=== PATIENT | male | born 1995 | race Hispanic/Latino ===

== ENCOUNTER 2024-01-31 19:35 | Inpatient (IN) | payer SELFPAY ==
[2024-01-31 20:17] LABS: #Basophils Less than 0.03 10x3/uL (0.0-0.2); %Basophils 0.2 % (0.0-1.0); %Eosinophils 1.9 % (0.0-10.0); %Neutrophils 73.7 % (42.0-75.0); Hematocrit 35.1 % (42.0-52.0); Hemoglobin 11.7 g/dL (14.0-18.0); Mean Corpuscular HGB CONC 33.3 g/dL (32.0-36.0); Mean Corpuscular Hemoglobin 28.5 pg (27.0-31.0); Mean Corpuscular Volume 85.4 fL (78.0-98.0); Mean Platelet Volume 8.8 fL (7.4-10.4); Platelet Count 356 10x3/uL (130-400); RBC Distribution Width 13.6 % (11.5-14.5); Red Blood Cell (RBC) Count 4.11 mill/uL (4.70-6.10)
[2024-01-31 20:33] LABS: ALT (SGPT) 16 U/L (8-55); AST (SGOT) 12 U/L (5-34); Albumin 3.3 g/dL (3.5-5.0); Alkaline Phosphatase 89 U/L (40-110); Anion Gap 14 mmol/L (10-20); BUN (Urea Nitrogen) 9 mg/dL (8.9-20.6); Bilirubin, Total 0.4 mg/dL (0.2-1.2); Calc. Creatinine Clearance 0 mL/min (70-130); Calcium 9.2 mg/dL (7.8-10.44); Carbon Dioxide 25 mmol/L (22-29); Chloride 99 mmol/L (98-107); Estimated GFR 111; Globulin 3.3 g/dL (2.4-3.5); Glucose 385 mg/dL (70-105); Potassium 4.1 mmol/L (3.5-5.1); Protein, Total 6.6 g/dL (6.0-8.3); Sodium 134 mmol/L (136-145)
[2024-01-31 20:38] LABS: Troponin I Less than 0.010 ng/mL (< 0.028)
[2024-01-31] MEDS ORDERED: Azithromycin 500 MG VIAL ONE ×2 (21:23→21:26)
[2024-01-31] MEDS ORDERED: Sodium Chloride 0.9% 100 ML ONE (21:26)
[2024-01-31] MEDS ORDERED: cefTRIAXone (ROCEPHIN) 2 GM VIAL ONE (21:26)
[2024-01-31] MEDS ORDERED: Ondansetron PF 4 MG/2 ML Vial IVP PRN (21:52)
[2024-01-31] MEDS ORDERED: Senokot S 8.6-50 MG TAB PO PRN (21:52)
[2024-01-31 22:35] LABS: Bacteria/HPF None Seen HPF (None Seen); Bilirubin Negative (Negative); Blood, Urine Negative (Negative); CAUTI Indications for Culture Fever or rigors; Clarity Clear (Clear); Glucose, Urine (Dipstick) Greater than 1000 mg/dL (Negative); Ketone, Urine Negative (Negative); Leukocyte Negative Leu/uL (Negative); Nitrite Negative (Negative); Protein, Urine (Dipstick) Negative (Neg-Trace); RBC/HPF 0-3 HPF (0-3); Specific Gravity, Urine 1.024 (1.002-1.036); Squamous Epithelial None Seen HPF (0-3); Urobilinogen Normal mg/dL (Less than 2); WBC/HPF None Seen HPF (0-3)
[2024-01-31 22:36] LABS: SARS-CoV-2 E Target Negative; SARS-CoV-2 N2 Target Negative; SARS-CoV-2 NAA Rapid Test Not Detected (NotDetected); SARS-CoV-2 RdRP gene Negative
[2024-01-31 22:36] LABS: Urine Culture Reflex No No
[2024-01-31 22:53] LABS: Lactic Acid 2.87 mmol/L (0.5-2.2)
[2024-01-31] MEDS ORDERED: Glucagon 1 MG/ML KIT IM PRN (23:49)
[2024-01-31] MEDS ORDERED: Dextrose 50% Abboject 50 ML SYRINGE SLOW IVP PRN (23:49)
[2024-01-31] MEDS ORDERED: Dextrose 5% in Water 1,000 ML IV PRN (23:49)
[2024-02-01 00:12] VITALS: BMI 33.8
[2024-02-01] MEDS: Sodium Chloride 0.9% 1,000 ML IV SCH (00:17)
[2024-02-01 00:37] LABS: Legionella Urinary Ag Negative (Negative); Strep pneumo Urine Ag NEGATIVE (NEGATIVE)
[2024-02-01 02:04] LABS: Influenza A by NAA Not Detected (NotDetected); Influenza B by NAA Not Detected (NotDetected); SARS-CoV-2 NAA Rapid Test Not Detected (NotDetected)
[2024-02-01 06:01] LABS: #Basophils 0.03 10x3/uL (0.0-0.2); %Basophils 0.3 % (0.0-1.0); %Eosinophils 1.7 % (0.0-10.0); %Lymphocytes 13.8 % (21.0-51.0); %Monocytes 11.7 % (0.0-10.0); %Neutrophils 72.1 % (42.0-75.0); Hematocrit 33.4 % (42.0-52.0); Hemoglobin 10.7 g/dL (14.0-18.0); Mean Corpuscular Hemoglobin 28.1 pg (27.0-31.0); Mean Corpuscular Volume 87.7 fL (78.0-98.0); Platelet Count 318 10x3/uL (130-400); RBC Distribution Width 13.7 % (11.5-14.5); Red Blood Cell (RBC) Count 3.81 mill/uL (4.70-6.10)
[2024-02-01 06:26] LABS: ALT (SGPT) 16 U/L (8-55); AST (SGOT) 12 U/L (5-34); Alkaline Phosphatase 78 U/L (40-110); Anion Gap 11 mmol/L (10-20); BUN (Urea Nitrogen) 7 mg/dL (8.9-20.6); Bilirubin, Total 0.6 mg/dL (0.2-1.2); Calc. Creatinine Clearance 186 mL/min (70-130); Calcium 8.8 mg/dL (7.8-10.44); Carbon Dioxide 26 mmol/L (22-29); Chloride 104 mmol/L (98-107); Estimated GFR 123; Globulin 3.3 g/dL (2.4-3.5); Glucose 282 mg/dL (70-105); Potassium 4.1 mmol/L (3.5-5.1); Protein, Total 6.3 g/dL (6.0-8.3); Sodium 137 mmol/L (136-145)
[2024-02-01] MEDS: Insulin Lispro 100 UNIT/ML 10 ML VIAL SC PRN ×2 (07:02→20:24)
[2024-02-01] MEDS: Enoxaparin 40 MG (0.4 mL) SYRINGE SC SCH (09:05)
[2024-02-01] MEDS: cefTRIAXone\\ROCEPHIN 1 GM in Sodium Chloride 0.9% 100 ML IVPB SCH (09:05)
[2024-02-01] MEDS ORDERED: Iopamidol 370 76% 100 ML VIAL ONE (09:05)
[2024-02-01] MEDS: guaiFENesin ER 600 MG TAB PO SCH (09:06)
[2024-02-01] MEDS: Azithromycin 500 MG in Sodium Chloride 0.9% 250 ML 250 ML IVPB SCH (20:22)
[2024-02-02 06:26] LABS: #Basophils Less than 0.03 10x3/uL (0.0-0.2); %Basophils 0.2 % (0.0-1.0); %Lymphocytes 11.9 % (21.0-51.0); %Monocytes 10.2 % (0.0-10.0); %Neutrophils 76.3 % (42.0-75.0); Hematocrit 33.8 % (42.0-52.0); Hemoglobin 11.1 g/dL (14.0-18.0); Mean Corpuscular HGB CONC 32.8 g/dL (32.0-36.0); Mean Corpuscular Hemoglobin 28.5 pg (27.0-31.0); Mean Corpuscular Volume 86.9 fL (78.0-98.0); Platelet Count 335 10x3/uL (130-400); RBC Distribution Width 13.6 % (11.5-14.5); Red Blood Cell (RBC) Count 3.89 mill/uL (4.70-6.10)
[2024-02-02 06:34] LABS: Lactic Acid 1.21 mmol/L (0.5-2.2)
[2024-02-02 06:38] LABS: Anion Gap 12 mmol/L (10-20); BUN (Urea Nitrogen) 8 mg/dL (8.9-20.6); Calc. Creatinine Clearance 181 mL/min (70-130); Calcium 8.9 mg/dL (7.8-10.44); Carbon Dioxide 25 mmol/L (22-29); Chloride 101 mmol/L (98-107); Estimated GFR 122; Glucose 241 mg/dL (70-105); Potassium 3.6 mmol/L (3.5-5.1); Sodium 134 mmol/L (136-145)
[2024-02-02] MEDS: Cefepime 2 GM in Sodium Chloride 0.9% 100 ML IVPB SCH (09:44)
[2024-02-02] MEDS: Piperacillin/Tazobactam 3.375 GM in Sodium Chloride 0.9% 100 ML IVPB SCH ×2 (13:41→18:01)
[2024-02-02 15:41] LABS: HIV (1/2) Antibody/Antigen NONREACTIVE (NonReactive); HIV 1/2 INDEX 0.22 S/CO (<1.00)
[2024-02-03] MEDS: Acetaminophen 325 MG TAB PO PRN (02:59)
[2024-02-03] MEDS: Benzonatate 100 MG CAP PO PRN (03:34)
[2024-02-03 06:13] LABS: #Basophils Less than 0.03 10x3/uL (0.0-0.2); %Basophils 0.1 % (0.0-1.0); %Eosinophils 0.9 % (0.0-10.0); %Monocytes 10.5 % (0.0-10.0); %Neutrophils 76.8 % (42.0-75.0); Hematocrit 34.7 % (42.0-52.0); Hemoglobin 11.3 g/dL (14.0-18.0); Mean Corpuscular HGB CONC 32.6 g/dL (32.0-36.0); Mean Corpuscular Hemoglobin 28.6 pg (27.0-31.0); Mean Corpuscular Volume 87.8 fL (78.0-98.0); Platelet Count 352 10x3/uL (130-400); RBC Distribution Width 13.6 % (11.5-14.5); Red Blood Cell (RBC) Count 3.95 mill/uL (4.70-6.10)
[2024-02-03 06:32] LABS: Anion Gap 13 mmol/L (10-20); BUN (Urea Nitrogen) 13 mg/dL (8.9-20.6); Calc. Creatinine Clearance 140 mL/min (70-130); Calcium 9.2 mg/dL (7.8-10.44); Carbon Dioxide 24 mmol/L (22-29); Chloride 101 mmol/L (98-107); Estimated GFR 99; Glucose 276 mg/dL (70-105); Potassium 3.7 mmol/L (3.5-5.1); Sodium 134 mmol/L (136-145)
[2024-02-03] MEDS: GUAIFENESIN SF SOLN 200 MG/10 ML UDCUP PO PRN (17:44)
[2024-02-03] MEDS: Pyrazinamide 500 MG TAB PO SCH (19:15)
[2024-02-03] MEDS: Isoniazid 100 MG TAB PO SCH (19:16)
[2024-02-03] MEDS: Ethambutol HCl 400 MG TAB PO SCH (19:16)
[2024-02-03] MEDS: Rifampin 300 MG CAP PO SCH (19:16)
[2024-02-03] MEDS ORDERED: Insulin Glargine 30 UNITS/0.3 ML VIAL SC SCH (21:00)
[2024-02-03] MEDS: Insulin Glargine 30 UNITS/0.3 ML VIAL SC SCH (21:43)
[2024-02-03] MEDS: pyridOXINE 50 MG (B6) TAB PO SCH (21:44)
[2024-02-04] MEDS: Rifampin 300 MG CAP PO SCH (09:14)
[2024-02-04] MEDS: pyridOXINE 50 MG (B6) TAB PO SCH (09:14)
[2024-02-04] MEDS: Pyrazinamide 500 MG TAB PO SCH (09:15)
[2024-02-04] MEDS: Isoniazid 100 MG TAB PO SCH (09:15)
[2024-02-04 10:50] LABS: #Basophils Less than 0.03 10x3/uL (0.0-0.2); %Basophils 0.2 % (0.0-1.0); %Eosinophils 0.6 % (0.0-10.0); %Lymphocytes 12.8 % (21.0-51.0); %Monocytes 9.8 % (0.0-10.0); %Neutrophils 76.1 % (42.0-75.0); Hematocrit 36.6 % (42.0-52.0); Hemoglobin 12.1 g/dL (14.0-18.0); Mean Corpuscular HGB CONC 33.1 g/dL (32.0-36.0); Mean Corpuscular Hemoglobin 28.2 pg (27.0-31.0); Mean Corpuscular Volume 85.3 fL (78.0-98.0); Platelet Count 410 10x3/uL (130-400); RBC Distribution Width 13.5 % (11.5-14.5); Red Blood Cell (RBC) Count 4.29 mill/uL (4.70-6.10)
[2024-02-04 11:06] LABS: Anion Gap 16 mmol/L (10-20); BUN (Urea Nitrogen) 14 mg/dL (8.9-20.6); Calc. Creatinine Clearance 173 mL/min (70-130); Calcium 9.9 mg/dL (7.8-10.44); Carbon Dioxide 22 mmol/L (22-29); Chloride 99 mmol/L (98-107); Estimated GFR 121; Glucose 248 mg/dL (70-105); Sodium 133 mmol/L (136-145)
[2024-02-04] MEDS: Insulin Glargine 30 UNITS/0.3 ML VIAL SC SCH (20:34)
[2024-02-05 04:43] LABS: Hemoglobin A1c 10.4 % (4.0-6.0)
[2024-02-05 13:18] LABS: Fungitell Beta (1,3) D-Glucan Negative (.)
[2024-02-06 00:13] LABS: QuantiFERON-TB Gold Plus POSITIVE (Negative)
[2024-02-06] MEDS: Calcium Carbonate 500 MG ChewTAB PO PRN (08:19)
[2024-02-06 17:10] VITALS: BMI 33.8
[2024-02-06 21:13] LABS: Histoplasma Mycelial AB (CF) Negative (Neg:<1:2); Histoplasma Yeast AB (CF) Negative (Neg:<1:2)
[2024-02-08 05:59] LABS: #Basophils 0.03 10x3/uL (0.0-0.2); %Basophils 0.3 % (0.0-1.0); %Eosinophils 2.6 % (0.0-10.0); %Lymphocytes 13.8 % (21.0-51.0); %Monocytes 8.3 % (0.0-10.0); %Neutrophils 74.5 % (42.0-75.0); Hematocrit 35.4 % (42.0-52.0); Hemoglobin 11.7 g/dL (14.0-18.0); Mean Corpuscular HGB CONC 33.1 g/dL (32.0-36.0); Mean Corpuscular Hemoglobin 28.3 pg (27.0-31.0); Mean Corpuscular Volume 85.7 fL (78.0-98.0); Mean Platelet Volume 8.8 fL (7.4-10.4); Platelet Count 395 10x3/uL (130-400); RBC Distribution Width 13.3 % (11.5-14.5); Red Blood Cell (RBC) Count 4.13 mill/uL (4.70-6.10)
[2024-02-08 06:15] LABS: ALT (SGPT) 13 U/L (8-55); AST (SGOT) 14 U/L (5-34); Albumin 3.2 g/dL (3.5-5.0); Alkaline Phosphatase 79 U/L (40-110); Anion Gap 12 mmol/L (10-20); BUN (Urea Nitrogen) 9 mg/dL (8.9-20.6); Bilirubin, Total 0.4 mg/dL (0.2-1.2); Calc. Creatinine Clearance 193 mL/min (70-130); Calcium 9.3 mg/dL (7.8-10.44); Carbon Dioxide 24 mmol/L (22-29); Chloride 102 mmol/L (98-107); Estimated GFR 125; Glucose 169 mg/dL (70-105); Potassium 3.8 mmol/L (3.5-5.1); Protein, Total 7.2 g/dL (6.0-8.3); Sodium 134 mmol/L (136-145)
[2024-02-09] MEDS: guaiFENesin ER 600 MG TAB PO SCH (09:32)
[2024-02-10 07:42] LABS: #Basophils 0.03 10x3/uL (0.0-0.2); %Basophils 0.3 % (0.0-1.0); %Eosinophils 2.9 % (0.0-10.0); %Lymphocytes 14.4 % (21.0-51.0); %Monocytes 9.1 % (0.0-10.0); %Neutrophils 72.7 % (42.0-75.0); Hematocrit 38.2 % (42.0-52.0); Hemoglobin 12.6 g/dL (14.0-18.0); Mean Corpuscular Hemoglobin 27.8 pg (27.0-31.0); Mean Corpuscular Volume 84.1 fL (78.0-98.0); Mean Platelet Volume 8.9 fL (7.4-10.4); Platelet Count 453 10x3/uL (130-400); RBC Distribution Width 13.3 % (11.5-14.5); Red Blood Cell (RBC) Count 4.54 mill/uL (4.70-6.10)
[2024-02-10 07:52] LABS: ALT (SGPT) 20 U/L (8-55); AST (SGOT) 20 U/L (5-34); Albumin 3.3 g/dL (3.5-5.0); Alkaline Phosphatase 81 U/L (40-110); Anion Gap 16 mmol/L (10-20); BUN (Urea Nitrogen) 8 mg/dL (8.9-20.6); Bilirubin, Total 0.2 mg/dL (0.2-1.2); Calc. Creatinine Clearance 177 mL/min (70-130); Calcium 9.7 mg/dL (7.8-10.44); Carbon Dioxide 23 mmol/L (22-29); Chloride 101 mmol/L (98-107); Estimated GFR 122; Globulin 3.9 g/dL (2.4-3.5); Glucose 176 mg/dL (70-105); Potassium 3.9 mmol/L (3.5-5.1); Protein, Total 7.2 g/dL (6.0-8.3); Sodium 136 mmol/L (136-145)
[2024-02-12 16:55] VITALS: BP 115/78; TEMP 97.4
== END 2024-02-12 18:11 | disposition home or self-care (01) | DRG 179 ==
LOC: ERS 19:35 → SUATTDRO 19:35 → T4-A 21:48
PROVIDERS: ADMIT Internal Medicine; ATTEND Internal Medicine
DX: A15.0 Tuberculosis of lung (principal); E66.9 Obesity, unspecified; E11.9 Type 2 diabetes mellitus without complications; Z68.33 Body mass index [BMI] 33.0-33.9, adult; Z79.84 Long term (current) use of oral hypoglycemic drugs
CPT/HCPCS: 36415; 36416; 71046; 71260; 80048; 80053; 81001; 83036; 83605; 83880; 84145; 84484; 85025; 86480; 86698; 87040; 87070; 87081; 87116; 87205; 87206; 87389; 87449; 87899; 93005; 96374; 96375; J0456; J0692; J0696; J1650; J1815; J2543; J7030; J7050; Q9967; U0002